=== PATIENT | male | born 1970 | race Two or more races ===

== ENCOUNTER 2023-06-05 10:39 | Emergency (ER) | payer SELFPAY ==
[~2023-06-05] VITALS: Ht 172.7 cm; Wt 68.0 kg
[2023-06-05] MEDS ORDERED: NITROGLYCERIN 0.4 MG SL TAB SL ONE (10:45)
[2023-06-05] MEDS ORDERED: ASPirin 325 MG TAB PO ONE (10:45)
[2023-06-05 11:10] LABS: Basophils # (auto) 0 10 ^3/uL (0-0.2); Basophils % (auto) 0.5 % (0.0-2.0); Eosinophils # (auto) 0.2 10 ^3/uL (0-0.8); Eosinophils % (auto) 2.7 % (0.0-7.0); Hemoglobin 14.1 g/dL (13.5-17.5); Lymphocytes # (auto) 1.3 10 ^3/uL (0.4-5.4); Lymphocytes % (auto) 18.8 % (10.0-50.0); Mean Corpuscular Hemoglobin 31.8 pg (28.0-32.0); Mean Corpuscular Hgb Conc. 33.7 g/dL (32.0-36.0); Mean Corpuscular Volume 94.4 fL (80.0-100.0); Monocytes # (auto) 0.8 10 ^3/uL (0-1.3); Monocytes % (auto) 12.4 % (0.0-12.0); Neutrophils # (auto) 4.4 10 ^3/uL (1.6-8.6); Neutrophils % (auto) 65.6 % (37.0-80.0); Red Blood Cells 4.44 10^6/uL (4.5-5.90); Red Cell Distribution Width 13.5 % (11.8-14.3); White Blood Cell 6.7 10^3/uL (4.4-10.8)
[2023-06-05 11:53] LABS: Albumin 4.2 g/dL (3.4-5.0); Calcium 9.1 mg/dL (8.5-10.1); Potassium 4.1 mmol/L (3.5-5.1)
[2023-06-05 11:56] LABS: BUN/Creatinine Ratio 28.6 (10.0-20.0); Bilirubin, Total 0.6 mg/dL (0.2-1.0); Total Protein 7.4 g/dL (6.4-8.2)
[2023-06-05 14:00] VITALS: BP 161/90; PULSE 68; RESP 17; TEMP 97.7; O2SAT 98
== END 2023-06-05 14:01 | disposition home or self-care (01) ==
LOC: ER 10:39
DX: R07.89 Other chest pain (principal); E11.9 Type 2 diabetes mellitus without complications; I10 Essential (primary) hypertension
CPT/HCPCS: 36415; 71045; 80053; 84443; 84484; 85025; 85379; 93005

== ENCOUNTER 2023-07-14 09:53 | Emergency (ER) | payer MEDICAID ==
[~2023-07-14] VITALS: Ht 170.2 cm; Wt 68.0 kg
[2023-07-14 10:56] VITALS: BP 174/103; PULSE 93; RESP 18; TEMP 96.9; O2SAT 97
[2023-07-14] MEDS ORDERED: METF-372 PO (11:52)
[2023-07-14] MEDS ORDERED: GLIM4TAB42 PO (11:52)
== END 2023-07-14 12:06 | disposition home or self-care (01) ==
LOC: ER 09:53
DX: E11.9 Type 2 diabetes mellitus without complications (principal); I10 Essential (primary) hypertension; Z76.0 Encounter for issue of repeat prescription; Z79.899 Other long term (current) drug therapy